=== PATIENT | female | born 1955 | race Caucasian/White ===

== ENCOUNTER 2023-02-17 06:24 | Outpatient (CLI) | payer MEDICARE, SELFPAY ==
--- NOTE | 2023-02-17 08:04 | W.ANESCHARGE ---
Anesthesia Charges Start Date/Time Anesthesia Start Date: 02/17/23 Anesthesia Start Time: 07:25 Stop Date/Time Anesthesia Stop Date: 02/17/23 Anesthesia Stop Time: 08:00
--- NOTE | 2023-02-17 11:19 | W.ANESCHARGE ---
Anesthesia Charges Start Date/Time Anesthesia Start Date: 02/17/23 Anesthesia Start Time: 07:25 Stop Date/Time Anesthesia Stop Date: 02/17/23 Anesthesia Stop Time: 08:00
== END 2023-02-17 06:25 | disposition home or self-care (01) ==
LOC: OP CLINIC 06:26
PROVIDERS: PCP Physician Assistant Medical; Visit Provider Surgery
DX: Z12.11 Encounter for screening for malignant neoplasm of colon (principal); K63.5 Polyp of colon; Z86.010 Personal history of colon polyps
CPT/HCPCS: 00811; 45385; 88305; J2704

== ENCOUNTER 2023-05-11 09:25 | Outpatient (CLI) | payer MEDICARE, SELFPAY | END 2023-05-11 09:26 | disposition home or self-care (01) | PROVIDERS: PCP Physician Assistant Medical; Visit Provider Physician Assistant Medical | DX: E78.5 Hyperlipidemia, unspecified (principal); I10 Essential (primary) hypertension | CPT/HCPCS: 80053; 80061; 84443 ==

== ENCOUNTER 2023-05-13 08:02 | Outpatient (CLI) | payer MEDICARE, SELFPAY ==
--- NOTE | 2023-05-13 08:15 | MM_ITS ---
Patient: QUEENIE CATALAN Facility:?[facility] Patient ID:?[id number] Site Patient ID:?[id number] Site :?1955 Study:?XRay-Breast Bilateral 3D W/CAD-05/13/2023 10:11:09 AM Ordering Physician:Jovany Final Report: BILATERAL SCREENING MAMMOGRAM WITH COMPUTER-AIDED DETECTION AND TOMOSYNTHESIS TECHNIQUE: CC and MLO views were obtained. These mammographic images have been obtained using full-field digital technique. These mammographic images were interpreted with the benefit of computer-aided detection. Breast Tomosynthesis was used in this interpretation. COMPARISON FILM: No comparison available. FINDINGS: There are scattered areas of fibroglandular density. IMPRESSION: There is no radiographic evidence for malignancy. ASSESSMENT: BI-RADS Category 1: Negative RECOMMENDATION: Routine screening mammogram in 1 year. A lay language report of this examination will be provided to the patient. Андрей Luque M.D. Diagnostic Radiologist [email or web address] DSM/sp R& Transcribed: 3:03 p.m. SP/Dictated by: Андрей Luque MD @ 05/30/2023 11:01:00 AM Signed by:?Андрей Luque MD @05/30/2023 3:54:12 PM (Electronic Signature)
== END 2023-05-13 08:03 | disposition home or self-care (01) ==
PROVIDERS: PCP Physician Assistant Medical; Visit Provider Physician Assistant Medical
DX: Z12.31 Encounter for screening mammogram for malignant neoplasm of breast (principal)
CPT/HCPCS: 77063; 77067

== ENCOUNTER 2024-02-14 09:00 | Outpatient (RCR) | payer MEDICARE, SELFPAY | END 2024-06-13 23:59 | disposition home or self-care (01) | PROVIDERS: PCP Physician Assistant Medical; Visit Provider Orthopaedic Surgery | DX: M25.551 Pain in right hip (principal); R26.2 Difficulty in walking, not elsewhere classified; M62.81 Muscle weakness (generalized); R26.9 Unspecified abnormalities of gait and mobility; Z51.89 Encounter for other specified aftercare | CPT/HCPCS: 97110; 97161 ==

== ENCOUNTER 2024-05-17 09:50 | Outpatient (CLI) | payer MEDICARE, SELFPAY | END 2024-05-17 09:51 | disposition home or self-care (01) | PROVIDERS: PCP Physician Assistant Medical; Visit Provider Physician Assistant Medical | DX: I10 Essential (primary) hypertension (principal); E78.5 Hyperlipidemia, unspecified; M85.80 Other specified disorders of bone density and structure, unspecified site | CPT/HCPCS: 80053; 80061; 84443 ==

== ENCOUNTER 2024-07-06 14:01 | Outpatient (CLI) | payer MEDICARE, SELFPAY ==
--- NOTE | 2024-07-06 14:40 | CRLHL7_ITS ---
For Patients: As a result of the Century Cures Act, medical imaging exams and procedure reports are released immediately into your electronic medical record. You may view this report before your referring provider. If you have questions, please contact your health care provider. INDICATION: BILATERAL SCREENING MAMMOGRAM, ASYMPTOMATIC 69 Y/O F COMPARISON: 05/13/23 TECHNIQUE: CC and MLO views were obtained. These mammographic images have been obtained using full-field digital technique. These mammographic images were interpreted with the benefit of computer aided detection and tomosynthesis. BREAST COMPOSITION: The breasts are almost entirely fatty. FINDINGS: No suspicious findings. ASSESSMENT: BI-RADS 2 Benign RECOMMENDATION: Annual screening mammogram. A lay language report of this examination will be provided to the patient. Dictated by: Андрей Luque MD @ 07/16/2024 08:48:28 (Electronically Signed)
--- NOTE | 2024-07-06 15:00 | CRLHL7_ITS ---
For Patients: As a result of the Century Cures Act, medical imaging exams and procedure reports are released immediately into your electronic medical record. You may view this report before your referring provider. If you have questions, please contact your health care provider. DXA BONE MINERAL DENSITY STUDY Current height (in): 68. Weight (lb): 190. Menopause age: 50. Ethnicity: White. 1. Have you had a previous hip or vertebral fracture? No. 2. Have you had any fractures during your adult life which did not result from significant trauma (e.g., auto accident)? No. 3. Did either of your parents have a hip fracture? No. 4. Do you smoke? No. 5. Have you ever taken Glucocorticoids? No. 6. Do you have rheumatoid arthritis? No. 7. Do you have secondary osteoporosis? No. 8. Do you drink 3 or more alcoholic drinks per day? No. 9. Are you being treated for osteoporosis? No. 10. Have you ever taken any of the following medications: Actonel, Evista, Fosamax, Miacalcin, Reclast, Boniva, Forteo, HRT (i.e. estrogen/hormone therapy), Protelos, Prolia, Vitamin D, Calcium, other ??? please specify. ANSWER: Yes, Vitamin D and Calcium. 11. Do you have any of the following medical conditions: Anorexia or bulimia, asthma or emphysema, end stage renal disease, hyperparathyroidism, any seizure disorders, cancer, inflammatory bowel diseases, hysterectomy, other ??? please specify. ANSWER: No. 12. What was your maximum height (inches)? 69. 13. Do you perform weight bearing exercise regularly? Yes. 14. Do you regularly consume dairy products? Yes. 15. Do you drink caffeinated beverages? Yes. 16. At what age did your period start? 14. 17. Are you premenopausal? No. 18. How many full term pregnancies have you had? 2. 19. Have you ever missed your period for more than 6 months in a row (not including or menopause)? No. TECHNIQUE: Bone mineral density study was performed using the [employer] FINDINGS: The results of the study expressed as bone mineral density (BMD) are as follows: Lumbar spine L1 to L4: BMD: 0.939 g/cm2. T-score: -1.0. Z-score: 1.1. Neck Left: BMD: 0.813 g/cm2. T-score: -0.3. Z-score: 1.4. Right: BMD: 0.764 g/cm2. T-score: -0.8. Z-score: 1.0. Total Left: BMD: 0.984 g/cm2. T-score: 0.3. Z-score: 1.8. Right: BMD: 0.986 g/cm2. T-score: 0.4. Z-score: 1.8. IMPRESSION: Normal bone density. Андрей Luque M.D. Diagnostic Radiologist [email or web address] DW/Dictated by: Андрей Luque MD @ 07/08/2024 7:56:00 AM (Electronically Signed)
== END 2024-07-06 14:02 | disposition home or self-care (01) ==
LOC: MAMMO 14:02
PROVIDERS: PCP Physician Assistant Medical; Visit Provider Physician Assistant Medical
DX: Z12.31 Encounter for screening mammogram for malignant neoplasm of breast (principal); Z78.0 Asymptomatic menopausal state
CPT/HCPCS: 77063; 77067; 77080

== ENCOUNTER 2024-09-03 14:26 | Emergency (ER) | payer MEDICARE, SELFPAY ==
--- OUTSIDE RECORDS SUMMARY | 2024-09-03 14:34 | XMS_ITS | Clinical Summary ---
Author Organization [facility] Address [address] [place] [id number] Care Team Providers Care Mental Health Orderly Name Role Phone Lani Segovia Primary Care Provider Unavailabl e Medications albuterol HFA (PRO-AIR; VENTOLIN; PROVENTIL) 90 mcg/actuation inhaler 2 PUFF INHALED EVERY 4 HOURS NEEDED FOR SHORTNESS OF BREATH OR WHEEZING PLEASE ADD A SPACER 3 Active atorvastatin (LIPITOR) 20 mg tablet Take 20 mg by mouth. Active calcium carbonate (CALTRATE) 600 mg calcium (1,500 mg) tablet Take by mouth. Activ e diclofenac (VOLTAREN) 75 mg delayed-release tablet 4 Active hydroCHLOROthia zide 25 mg tablet 4 Active lisinopriL (PRINIVIL; ZESTRIL) 40 mg tablet Take 40 mg by mouth. 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 Gender Identity Not on file Sexual Orientation Not on file Obstetrics History Last Filed Vital Signs Vital Sign Reading Time Taken Comments Blood Pressure - - Pulse - - Temperature - - Respiratory Rate - - Oxygen Saturation - - Inhaled Oxygen Concentration - - Weight 90.3 kg (199 lb) 12/15/2023 8:00 AM CDT Height 173 cm (5' 8.11) 12/15/2023 8:00 AM CDT Body Mass Index 30.16 12/15/2023 8:00 AM CDT Plan of Treatment Health Maintenance Due Date Last Done Comments Tdap 1966 Depression screening for age 12+ 1967 Hepatitis C screening for ag e 18-79 1973 Tetanus booster 1975 Colonoscopy through age 75 01/12/2000 Lipids for age 45-75 01/12/2000 Mammogram for age 45-75 01/12/2000 Pneumococcal series for age 50+ (1 of 1 - PCV) 2005 Zoster (shingles) series for age 50+ (1 of 2) 2005 DEXA/DXA scan for age 65+ 01/12/2020 Medicare Wellness for age 65+ 01/12/2020 COVID-19 vaccine series ( season) 2023 12/07/2022, 07/07/2022, 06/19/2021 Influenza Vaccine (Season Ended) 2024 BMI (ht and wt on same day) for age 18+ 12/14/2024 12/15/2023 RSV vaccine for adults or (1 - 1-dose 75+ series) 2030 Hepatitis B series for 19+ Aged Out N o longer eligible based on patient's age to complete this topic Insurance [id number] [place] [id number] [facility] MR Care Teams Mental Health Orderly Relationship Specialty Start Date End Date Lani Segovia PA PCP - General Physician Strickler Attendant 12/15/23
--- OUTSIDE RECORDS SUMMARY | 2024-09-03 14:34 | XMS_ITS | Clinical Summary ---
Author Organization [facility] Address [address] [place] [id number] Care Team Providers Care Demolition Hammer Operator Name Role Phone Lani Segovia PA-C Primary Care Provider [phone] Allergies No known active allergies Medications albuterol (PROAIR HFA/PROVENTIL HFA/VENTOLIN HFA) 108 (90 Base) MCG/ACT inhaler 2 PUFF INHALED EVERY 4 HOURS NEEDED FOR SHORTNESS OF BREATH OR WHEEZING PLEASE ADD A SPACER 3 Active diclofenac (VOLTAREN) 75 MG EC tablet TAKE 1 TABLET BY MOUTH TWICE DAILY - WITH BREAKFAST AND SUPPER. 2 Active doxycycline hyclate (VIBRA-TABS) 100 MG tablet 1 TABLET ORALLY TWICE A DAY FOR 7 DAYS 3 Active lisinopril (ZESTRIL) 40 MG tablet Take 40 mg by mouth daily Active hydrochlorothia zide (MICROZIDE) 12.5 MG capsule Take 12.5 mg by mouth daily Active atorvastatin (LIPITOR) 20 MG tablet Take 20 mg by mouth daily Active calcium carbonate (OS-JOHNY) 1500 (600 Ca) MG tablet Take by mouth 2 times daily (with meals) Taking 1200 Active Immunizations Immunization Administration Dates Next Due COVID-19 Monovalent 18+ (Moderna) 2021,01/03/2021,05/13/2020,2020 DTAP (<7y) 03/14/1968,1955 [id number] Novel Flu P-free 02/25/2009 Influenza (High Dose) Trival ent,PF (Fluzone) 12/13/2020 Influenza (IIV3) PF 01/21/2016, 4,12/19/2011,2009,12/22/2008,02/15/2008,02/09/2007,1 04/04/2005,01/25/2005,01/20/1999 Influenza (prior to 2023) 12/10/2012,01/17/2011 Influenza Vaccine (Flucelvax Quadrivalent) 2018 Influenza Vaccine 65+ (FLUAD) 12/07/2021 Influenza Vaccine >6 months,quad, PF 11/23/2019, 12/19/2016,12/26/2014 Influenza Vaccine, 6+MO IM (QUADRIVALENT W/PRESERVATIVES) 12/22/2018 Mumps 03/14/1957 Pneumococcal 20 valent Conju gate (Prevnar 20) 12/07/2021 Pneumococcal 23 valent 03/31/2020 Poliovirus, inactivated (IPV) 03/14/1962, 962 Small Pox (Vaccinia) 03/14/1968,1955 TDAP (Adacel,Boostrix) 10/02/2012 Td (Adult), Adsorbed 08/17/2022 Zoster recombinant adjuvante d (Shingrix) 08/21/2019,03/30/2019 Zoster vaccine, live 01/30/2015 Social History Tobacco Use Types Packs/Day Years Used Date Smoking Tobacco: Former Cigarettes Smokeless Tobacco: Never Tobacco Cessation:Counseling Given: Not Answered Comments:Smoked in her 20's PHQ-2 Answer Date Recorded PHQ-2 Score 0 09/29/2022 Adolescent Education Answer Date Record ed Getting School Help Needed Not on file 12/04 Comments No Sex and Gender Information Value Date Recorded Sex Assigned at Not on file Legal Sex Female 5:22 PM CDT Gender Identity Not on file Sexual Orientation Not on file Last Filed Vital Signs Vital Sign Reading Time Taken Comments Blood Pressure 126/82 09/29/2022 9:40 AM CDT Pulse - - Temperature - - Respiratory Rate - - Oxygen Saturation - - Inhaled Oxygen Concentration - - Weight 90.7 kg (200 lb) 09/29/2022 9:40 AM CDT Height 174 cm (5' 8.5) 09/29/2022 9:40 AM CDT Body Mass Index 29.97 09/29/2022 9:40 AM CDT Plan of Treatment Health Maintenance Due Date Last Done Comments ADVANCE CARE PLANNING 1955 ANNUAL REVIEW OF HM ORDERS 1955 CT COLONOGRAPHY 1955 DEXA 1955 DIABETES SCREENING 1955 FIT 1955 FLEX SIG 1955 LIPID 1955 MAMMO SCREENING 1955 sDNA (Cologuard) 1955 COLONOSCOPY 1965 COLORECTAL CANCER SCREENING 1965 HEPATITIS C SCREENING 1973 LUNG CANCER SCREENING 2005 FALL RISK ASSESSMENT 01/12/2020 MEDICARE ANNUAL WELLNESS VISIT 01/12/2020 COVID-19 VACCINE ( season) 2023 07/07/2022, 11/19/2021, 06/19/2021, Additional history exists PHQ-2 (once per calendar year) 2024 09/29/2022 INFLUENZA VACCINE (Season Ended) 2024 12/07/2021, 12/13/2020, 11/23/2019, Additional history exists RSV VACCINE (1 - 1-dose 75+ series) 2030 DTAP/TDAP/TD VACCINE (5 - Td or Tdap) 08/17/2032 08/17/2022, 10/02/2012, 03/14/1968, Additional history exists ZOSTER VACCINE Completed 08/21/2019, 03/14, 01/30/2015 PNEUMOCOCCAL VACCINE 50+ YEARS Completed 12/07/2021, 03/31/2020 HPV VACCINE Aged Out No longer eligi ble based on patient's age to complete this topic MENINGITIS VACCINE Aged Out No longer eligible based on patient's age to complete this topic Insurance [employer] MEDICARE ADVANTAGE Care Teams Demolition Hammer Operator Relationship Specialty Start Date End Date Lani Segovia PA-C [address] [address] PCP - General 09/29/22
[2024-09-03 14:36] VITALS: BP 174/93; PULSE 90; RESP 18; TEMP 36.6; O2SAT 99; BMI 28.8
--- NOTE | 2024-09-03 15:20 | CRLHL7_ITS ---
For Patients: As a result of the Century Cures Act, medical imaging exams and procedure reports are released immediately into your electronic medical record. You may view this report before your referring provider. If you have questions, please contact your health care provider. INDICATION: Left flank and left abdominal pain. TECHNIQUE: CT of the abdomen and pelvis without IV contrast. Coronal and sagittal reconstructions. COMPARISON: None. FINDINGS: Lower chest: Unremarkable. Liver: Unremarkable. Gallbladder and bile ducts: Unremarkable. No biliary dilatation. Spleen: Unremarkable. Pancreas: Unremarkable. Adrenal glands: Unremarkable. Kidneys, Ureters, and Bladder: No right hydronephrosis or ureteral dilation. There is a 3 mm obstructing stone at the left ureterovesicular junction with moderate upstream left hydroureteronephrosis and perinephric fat stranding (series 2, image 123). Additional small nonobstructing left renal calyceal stone. Underdistended urinary bladder. Reproductive organs: Probable fibroid in the central uterus. Unremarkable adnexa. GI tract/Peritoneum: No small bowel dilation. Moderate stool burden. Colonic diverticulosis without evidence of diverticulitis. Negative appendix. No intraperitoneal free air or fluid. Vasculature: Abdominal aorta is normal in caliber. Lymph nodes: No lymphadenopathy. Abdominal Wall: Small umbilical hernia containing fat and fluid. Bones: Mild anterolisthesis of L4 on L5. Old left posterior rib fractures. IMPRESSION: 3 mm obstructing stone at the left UVJ with moderate left hydroureteronephrosis. Please note that all CT scans at this facility use dose modulation, iterative reconstruction, and/or weight-based dosing when appropriate to reduce radiation dose to as low as reasonably achievable. Dictated by Joann Joe MD @ 09/03/2024 3:55:12 PM (Electronically Signed)
--- NOTE | 2024-09-03 15:22 | ED.ABDPAIN ---
HPI - Abdominal Pain General Chief Complaint: Abdominal Pain Stated Complaint: Abdominal pain Time Seen by Provider: 09/03/24 14:28 History of Present Illness HPI narrative: This 69-year-old female comes in reporting left-sided abdominal pain and flank pain over the past day or so. She states that she had symptoms mildly like this about a month ago. She states that the pain seems to come and go and sometimes has cause nausea. She has not vomited. She does not report any dysuria symptoms. She states that the pain makes her want to score min pace and try to find a position to get comfortable. She does not report any injury event or previous back pains. She does not have a history of kidney stones and does not know of any family history of such. Related Data Home Medications ?Medication ?Instructions ?Recorded ?Confirmed calcium carbonate (Calcium 600) 600 mg PO TID 08/17/22 08/15/24 Previous Rx's ?Medication ?Instructions ?Recorded triamcinolone acetonide 0.1 % 1 applic topical BID #453.6 grams 03/21/24 topical cream atorvastatin 20 mg tablet 20 mg PO DAILY #90 tabs 05/17/24 diclofenac sodium 75 mg 75 mg PO DAILY #90 tabs 05/17/24 tablet,delayed release hydrochlorothiazide 25 mg tablet 25 mg PO DAILY #90 tabs 05/17/24 lisinopril 40 mg tablet 40 mg PO DAILY #90 tabs 05/17/24 albuterol sulfate 90 mcg/actuation 2 puff inhalation Q6H #8.5 grams 08/15/24 aerosol inhaler benzonatate 100 mg capsule 100 mg PO TID PRN cough #20 caps 08/15/24 hydrocodone 5 mg-acetaminophen 325 1 tab PO Q4-6H PRN pain #15 tabs 09/03/24 mg tablet ketorolac 10 mg tablet 10 mg PO TID 5 days #15 tabs 09/03/24 ondansetron HCl 4 mg tablet 4 mg PO Q6H #15 tabs 09/03/24 Allergies Allergy/AdvReac Type Severity Reaction Status Date / Time nickel Allergy Unknown Verified 08/15/24 07:13 Review of Systems Status of ROS Reports: 10 or more systems reviewed and unremarkable except as noted in History and below Narrative Constitutional: No fevers, no weight gain or loss. Eyes: No discharge. No vision changes. HENT: No congestion, no sore throat, no ear pain. Cardiovascular: No chest pain, no palpitations. Respiratory: No shortness of breath, no wheezes, no cough. Gastrointestinal: Left-sided abdominal and flank pain. Genitourinary: No dysuria, no hematuria. Musculoskeletal: Normal range of motion. Skin: No rashes, no pruritis. Neurological: No dizziness, weakness, sensory change, speech change. Endo/Heme/Allergies: No bruising or bleeding. No polydipsia. Pysch: no suicidality, no anxiety, no insomnia. All other systems reviewed and are negative. [facility] Medical History (Updated 09/03/24 @ 16:45 by Hero Plata MD) Acute bronchitis ?J20.9 - Acute bronchitis, unspecified (ICD-10) Anxiety ?F41.9 - Anxiety disorder, unspecified (ICD-10) Bronchitis ?J40 - Bronchitis, not specified as acute or chronic (ICD-10) Surgical History (Updated 05/11/23 @ 09:20 by Lani Segovia PA-C) History of hand fracture ?Z87.81 - Personal history of (healed) traumatic fracture (ICD-10) History of carpal tunnel release of both wrists ?Z98.890 - Other specified postprocedural states (ICD-10) History of tonsillectomy ?Z90.89 - Acquired absence of other organs (ICD-10) History of bilateral knee replacement ?Z96.653 - Presence of artificial knee joint, bilateral (ICD-10) History of colonoscopy ?Z98.890 - Other specified postprocedural states (ICD-10) Social History (Updated 05/17/24 @ 13:18 by Babita Reza ~ [facility]) What is your current living situation?: I presently have a place to live Problems where you live: pests, such as bugs, ants, or mice In the past 12 months, utilities in danger of being shut off: no In the past 12 mos, have been you worried that your food would run out before you had money to buy more?: never true In the past 12 mos, the food you bought just didn't last and you didn't have money to buy more?: never true Smoking Status: Former smoker How often does anyone, including family, friends and others, physically hurt you: never How often does anyone, including family, friends and others, insult or talk down to you: never How often does anyone, including family, friends and others, threaten you with harm: never How often does anyone, including family, friends and others, scream or curse at you: never Health Related Social Needs: Inadequate housing (Z59.1) Exam Narrative: Exam Narrative: Constitutional: Well-developed, well-nourished, no acute distress. HEENT: Normocephalic, atraumatic. Neck: Normal range of motion. Nontender. Supple. Heart: Regular. No murmurs. Normal rate. Intact distal pulses. Lungs: Clear to auscultation. No chest discomfort. No wheezes, rhonchi, or rales. Abdomen: Normal bowel sounds.. No rebound tenderness. Pain in the left side comes and goes. Genitalia: Deferred. Back: No midline tenderness. Normal range of motion. Extremities: Normal range of motion. No injury. Skin: Intact. No rash. Warm. No erythema or pallor. Neurologic: No altered sensation. No weakness. Alert and oriented. Psychiatric: No suicidality. No anxiety or depression. No insomnia. Nursing notes and vitals signs are reviewed. Const: Vital Signs, click to edit/add: Vital Signs - 24 hr 09/03/24 14:36 Temperature 97.9 F Pulse Rate [Pulse Oximeter] 90 Respiratory Rate 18 Blood Pressure [Ri ght Upper Arm] 174/93 H Pulse Oximetry 99 Oxygen Delivery Me thod Room Air Course Vital Signs Vital signs: Initial Vital Signs Temperature 97.9 F 09/03/24 14:36 Temperature Source Temporal Artery Scan 09/03/24 14:36 Pulse Rate 90 09/03/24 14:36 Respiratory Rate 18 09/03/24 14:36 Blood Pressure 174/93 H 09/03/24 14:36 Blood Pressure Mean 120 H 09/03/24 14:36 Blood Pressure Position Sitting 09/03/24 14:36 Pulse Oximetry 99 09/03/24 14:36 Oxygen Delivery Method Room Air 09/03/24 14:36 Vital Signs Temperature 97.9 F 09/03/24 14:36 Pulse Rate 90 09/03/24 14:36 Respiratory Rate 18 09/03/24 14:36 Blood Pressure 174/93 H 09/03/24 14:36 Pulse Oximetry 99 09/03/24 14:36 Oxygen Delivery Method Room Air 09/03/24 14:36 Temperature 97.9 F 09/03/24 14:36 Pulse Rate 90 09/03/24 14:36 Respiratory Rate 18 09/03/24 14:36 Blood Pressure 174/93 H 09/03/24 14:36 Pulse Oximetry 99 09/03/24 14:36 Oxygen Delivery Method Room Air 09/03/24 14:36 MDM - Abdominal Pain MDM Narrative Medical decision making narrative: This patient comes in with left abdominal and flank pain as described above. Her symptoms were classic for a kidney stone. CT scan of the abdomen and pelvis is obtained and does show a 3 mm stone at the left ureterovesical junction with some hydroureter upstream. The patient is currently feeling okay and did not have any need for medications at this time. I did describe matters pertaining to kidney stones and the likelihood that she should be able to pass this stone on her own. She is okay to be discharged home and received prescriptions for Toradol, Mills, and Zofran. Urinalysis today shows microscopic hematuria but no sign of infection. Lab Data Labs: Lab Results 09/03/24 Range/Units 15:19 Urine Color Yellow (Yellow) Urine Appearance Clear (Clear) Urine pH 5.5 (5.0-8.5) Ur Specific [place] >= 1.030 (1.000-1.030) Urine Protein Negative (Negative) Urine Glucose (UA) Negative (Negative) Urine Ketones Negative (Negative) Urine Blood Trace-lysed A (Negative) Urine Nitrite Negative (Negative) Urine Bilirubin Negative (Negative) Urine Urobilinogen 0.2 (0.2-1.0) Ur Leukocyte Esterase Negative (Negative) Urine RBC 2-5 A (0-2) Urine WBC 0-2 (0-5) Ur Squamous Epith Cells Few (None-Few) Urine Bacteria None (None) Imaging Data CT scan - abdomen: Radiologist's impression: 3 mm obstructing stone at the left UVJ with moderate left hydroureteronephrosis. Discharge Plan Discharge Clinical Impression: Calculus, ureteral Patient Disposition: Home, Self-Care Condition: Stable Additional Instructions: Take medication as needed and indicated. Follow up with MD return if symptoms are persistent or worsening. Prescriptions: New hydrocodone-acetaminophen 5-325 mg tablet 1 tab PO Q4-6H PRN (Reason: pain) Qty: 15 0RF ondansetron HCl 4 mg tablet 4 mg PO Q6H Qty: 15 0RF ketorolac 10 mg tablet 10 mg PO TID 5 Days Qty: 15 0RF No Action diclofenac sodium 75 mg tablet,delayed release (DR/EC) 75 mg PO DAILY Qty: 90 3RF atorvastatin 20 mg tablet 20 mg PO DAILY Qty: 90 3RF lisinopril 40 mg tablet 40 mg PO DAILY Qty: 90 3RF hydrochlorothiazide 25 mg tablet 25 mg PO DAILY Qty: 90 3RF albuterol sulfate 90 mcg/actuation HFA aerosol inhaler 2 puff inhalation Q6H Qty: 8.5 1RF benzonatate 100 mg capsule 100 mg PO TID PRN (Reason: cough) Qty: 20 0RF calcium carbonate [Calcium 600] 600 mg calcium (1,500 mg) tablet 600 mg PO TID triamcinolone acetonide 0.1 % cream 1 applic topical BID Qty: 453.6 0RF Follow Up/Referrals: Lani Segovia PA-C [Primary Care Provider, Family Practice] Stand Alone Forms: [facility] Info Instructions
[2024-09-03 15:56] LABS: Appearance Urine Clear (Clear); Bilirubin Urine Negative (Negative); Blood Urine Trace-lysed (Negative); Glucose Urine Negative (Negative); Ketones Urine Negative (Negative); Leukocyte Esterase Urine Negative (Negative); Nitrite Urine Negative (Negative); Protein Urine Negative (Negative); Specific Gravity Urine >= 1.030 (1.000-1.030); Urobilinogen Urine 0.2 (0.2-1.0); pH Urine 5.5 (5.0-8.5)
[2024-09-03 16:05] LABS: Color Urine Yellow (Yellow)
[2024-09-03 16:20] LABS: Squamous Epithelial Cell Urine Few (None-Few); WBC Urine 0-2 (0-5)
== END 2024-09-03 17:02 | disposition home or self-care (01) ==
PROVIDERS: Emergency Provider Emergency Medicine Emergency Medical Services; PCP Physician Assistant Medical
DX: N20.1 Calculus of ureter (principal)
CPT/HCPCS: 74176; 81001; 99284

== ENCOUNTER 2025-03-05 13:52 | Outpatient (CLI) | payer MEDICARE, SELFPAY | END 2025-03-05 13:53 | disposition home or self-care (01) | PROVIDERS: PCP Physician Assistant Medical; Visit Provider Physician Assistant Medical | DX: M25.50 Pain in unspecified joint (principal) | CPT/HCPCS: 86200; 86431 ==